=== PATIENT | female | born 1955 | race Caucasian/White ===

== ENCOUNTER → 2020-05-14 13:25 | Outpatient (CLI) | payer MEDICARE, SELFPAY ==
--- NOTE | ~2020-05-14 | MM_ITS ---
EXAMINATION: MM screening jovan BI w sera HISTORY: Screening mammogram TECHNIQUE: Craniocaudal and mediolateral oblique 3-D tomosynthesis images were obtained and synthetic 2-D images were generated. CAD analysis was submitted and interpreted. COMPARISON: 09/02/2018, 07/25/2017, 06/13/2016 bilateral digital screening mammogram examinations BREAST PARENCHYMAL COMPOSITION: The breasts are almost entirely fatty. FINDINGS: There is no evidence of suspicious mass, calcification, or architectural distortion to sugg est malignancy in either breast. There has been no suspicious interval change. IMPRESSION: 1. No mammographic evidence of malignancy. 2. Recommend routine screening mammography in one year. BI-RADS Category 1: Negative Reviewed, dictated and finalized at location A.
== END ==
PROVIDERS: PCP Family Medicine; Visit Provider Family Medicine
DX: Z12.31 Encounter for screening mammogram for malignant neoplasm of breast (principal)
CPT/HCPCS: 77063; 77067

== ENCOUNTER → 2021-09-21 12:22 | Outpatient (CLI) | payer MEDICARE, SELFPAY ==
--- NOTE | ~2021-09-21 | MM_ITS ---
EXAMINATION: MM screening jovan BI w sera HISTORY: Screening TECHNIQUE: Craniocaudal and mediolateral oblique 3-D tomosynthesis images were obtained and synthetic 2-D images were generated. CAD analysis was submitted and interpreted. COMPARISON: Comparison to multiple prior studies sequentially, with oldest reviewed study dated 06/27. BREAST PARENCHYMAL COMPOSITION: The breasts are almost entirely fatty. FINDINGS: There is no evidence of suspicious mass, calcification, or architectural distortion to sugg est malignancy in either breast. There has been no suspicious interval change. IMPRESSION: 1. No mammographic evidence of malignancy. 2. Recommend routine screening mammography in one year. BI-RADS Category 1: Negative Reviewed, dictated and finalized at location A. ND MIXER
== END ==
PROVIDERS: PCP Family Medicine; Visit Provider Family Medicine
DX: Z12.31 Encounter for screening mammogram for malignant neoplasm of breast (principal)
CPT/HCPCS: 77063; 77067

== ENCOUNTER → 2022-12-08 11:15 | Outpatient (CLI) | payer MEDICARE, SELFPAY ==
--- NOTE | ~2022-12-08 | MM_ITS ---
EXAMINATION: MM screening jovan BI w sera HISTORY: Screening mammogram TECHNIQUE: Craniocaudal and mediolateral oblique 3-D tomosynthesis images were obtained and synthetic 2-D images were generated. CAD analysis was submitted and interpreted. COMPARISON: 09/21/2021, 05/14/2020, 08/23/2018 bilateral screening mammogram examinations BREAST PARENCHYMAL COMPOSITION: The breasts are almost entirely fatty. FINDINGS: There is no evidence of suspicious mass, calcification, or architectural distortion to sugg est malignancy in either breast. There has been no suspicious interval change. IMPRESSION: 1. No mammographic evidence of malignancy. 2. Recommend routine screening mammography in one year. BI-RADS Category 1: Negative Reviewed, dictated and finalized at location A. HER TENDER
== END ==
PROVIDERS: PCP Family Medicine; Visit Provider Family Medicine
DX: Z12.31 Encounter for screening mammogram for malignant neoplasm of breast (principal)
CPT/HCPCS: 77063; 77067

== ENCOUNTER → 2022-12-21 09:07 | Outpatient (CLI) | payer MEDICARE, SELFPAY ==
--- NOTE | ~2022-12-21 | CT_ITS ---
EXAMINATION:CT chest high resolution wo sd DATE: 12/21/2022 09:23 INDICATION: Interstitial lung disease. TECHNIQUE: Computed tomography (CT) of the chest was performed without intravenous contrast. Automate d exposure control and iterative reconstruction technique were employed. The dose-length product (DLP ) was 470.93 mGy-cm. COMPARISON: Chest CT 09/17/2019 FINDINGS: The lung volumes are small. There is widespread peripheral septal thickening in the lungs w ith areas of honeycombing. There is associated mild groundglass opacities. A calcified right lung nod ule and calcified right hilar and mediastinal lymph nodes are consistent with old granulomatous disea se. No pleural effusion. There is right ventricular enlargement of the heart. There are coronary golden ry calcifications. No pericardial effusion. There is ectasia of ascending aorta measuring 4.2 cm . Ca lcifications in the liver and spleen are consistent with old granulomatous disease. There are gallsto juni in the gallbladder, which is contracted. There is a small sliding hiatal hernia. There is mild th oracic spondylosis. IMPRESSION: 1. Chronic interstitial lung disease in a pattern of usual interstitial pneumonia (UIP), stable from 09/17/2019. Reviewed, dictated and finalized at location A. MACIST IN CHARGE IMPRESSION: 1. Chronic interstitial lung disease in a pattern of usual interstitial pneumon ia (UIP), stable from 09/17/2019.
== END ==
PROVIDERS: PCP Family Medicine; Visit Provider Nurse Practitioner Family
DX: J84.9 Interstitial pulmonary disease, unspecified (principal)
CPT/HCPCS: 71250

== ENCOUNTER 2022-12-23 07:51 | Outpatient (CLI) | payer MEDICARE, SELFPAY ==
--- NOTE | 2022-12-23 13:16 | PCRCNOTE ---
PT DECLINED 6 MINUTE WALK
--- NOTE | 2022-12-23 16:51 | WPDPFTINT ---
PFT Procedure Performed PFT Procedure Performed Spirometry with Pre/Post Bronchodilator Plethysmography (Lung Vol) Diffusing Cap (DLCO) Flow Vol Loop PFT Interpretation This is a pulmonary function test with pre and post-bronchodilator spirometry, plethysmography and diffusing capacity. The test was performed and results interpreted in accordance with the 2019 and 2005 ATS/ERS Task Force guidelines respectively using the Global Lung Function Initiative-2012 reference equations. Patient demonstrated good effort and cooperation. Reproducibility criteria were met. The quality of the pre bronchodilator spirometry maneuver was Grade B and post bronchodilator spirometry maneuver was Grade A. Findings: Spirometry: The contour the inspiratory and expiratory flow tracing are normal. The pre bronchodilator FVC is 2.30 L, 79% predicted. The pre bronchodilator FEV1 is 1.95 L, 87% predicted. The pre bronchodilator FEV1: FVC ratio is 85%. The post bronchodilator FVC is 2.45 L, representing a 6% increase. The post bronchodilator FEV1 is 2.12 L, representing a 9% increase. The post bronchodilator FEV1: FVC ratio was 87%. Plethysmography: The total lung capacity is 3.56 L, 70% predicted. The functional residual capacity is 1.92 L, 66% predicted. The residual volume is 0.96 L, 44% predicted. Diffusing capacity: The diffusing capacity unadjusted for hemoglobin and carboxyhemoglobin is 12.9, 62% predicted. The diffusion capacity adjusted for alveolar volume is 4.00, 93% predicted. In comparison to previous pulmonary function test on 06/30/2016 the post bronchodilator FVC is unchanged from 2.39 L to 2.45 L. The post bronchodilator FEV1 is unchanged from 1.92 L to 2.12 L. The total lung capacity has decreased from 4.63 L to 3.56 L. Functional residual capacity has decreased from 2.47 L to 1.92 L. The residual volume has decreased from 2.05 L to 0.96 L. The diffusing capacity unadjusted for hemoglobin and carboxyhemoglobin is unchanged from 12.4 to 12.9. The diffusing capacity adjusted for alveolar volume is unchanged from 3.80 to 4.00. Impression: There is a mild restrictive ventilatory abnormality with a normal FEV1. The spirometry is normal without evidence of an obstructive abnormality. There is no significant improvement after inhaling a single dose of albuterol. The diffusing capacity unadjusted for hemoglobin and carboxyhemoglobin is mildly decreased and normalizes when adjusted for alveolar volume. In comparison to previous pulmonary function test on 06/30/2016 there has been a greater than anticipated time dependent decrease in total lung capacity, functional residual capacity and residual volume with no significant change in the FVC, FEV1 or diffusing capacity. clinical correlation recommended
== END 2022-12-23 07:52 | disposition home or self-care (01) ==
LOC: ANHPFT 07:52
PROVIDERS: PCP Family Medicine; Visit Provider Nurse Practitioner Family
DX: R06.09 Other forms of dyspnea (principal); J84.9 Interstitial pulmonary disease, unspecified; R94.2 Abnormal results of pulmonary function studies
CPT/HCPCS: 94060; 94726; 94729

== ENCOUNTER 2023-03-01 10:32 | Outpatient (CLI) | payer MEDICARE, SELFPAY ==
--- NOTE | ~2023-03-01 | XR_ITS ---
EXAMINATION: XR toe 1st LT min 2V DATE: 03/01/2023 10:53 INDICATION: Left great toe local infection of the skin and subcutaneous tissue. TECHNIQUE: 4 views of left great toe were obtained. COMPARISON: None. FINDINGS: Bone alignment is normal. No fracture. There is mild osteoarthritis of first metatarsophala ngeal joint and first interphalangeal joint. IMPRESSION: 1. No evidence of osteomyelitis. 2. Mild polyarticular osteoarthritis. Reviewed, dictated and finalized at location A.
== END 2023-03-01 10:33 | disposition home or self-care (01) ==
LOC: ANHIMG 10:37
PROVIDERS: PCP Family Medicine; Visit Provider Nurse Practitioner Gerontology
DX: L08.9 Local infection of the skin and subcutaneous tissue, unspecified (principal); M19.072 Primary osteoarthritis, left ankle and foot
CPT/HCPCS: 73660

== ENCOUNTER → 2023-04-06 12:02 | Outpatient (CLI) | payer MEDICARE, SELFPAY ==
--- NOTE | ~2023-04-06 | DEXA_ITS ---
Bone Density Report Name: MATTHEW FUENTES Age: 67 Sex: Female Ethnicity: White Date of : 1955 Indication: postmenopausal; screening for osteoporosis; parental hip fracture; prior fracture; Referring Provider: DEVEN BALLESTEROS Study: Bone densitometry was performed. Exam Date: April 06, 2023 Accession number: [id number] Bone Density: Region BMD T-score Z-score Classification AP Spine (L1, L2, L3) 1.015 0.0 2.0 Normal Femoral Neck (Left) 0.734 -1.0 0.7 Normal Total Hip (Left) 0.920 -0.2 1.3 Normal Femoral Neck (Right) 0.784 -0.6 1.2 Normal Total Hip (Right) 0.918 -0.2 1.3 Normal Total Hip Mean 0.919 -0.2 1.3 Normal World Health Organization criteria for BMD impression classify patients as: Normal (T-score at or above -1.0), Osteopenia (T-score between -1.0 and -2.5), or Osteoporosis (T-score at or below -2.5). 10-year Fracture Risk: FRAX not reported because: All T-scores for Spine Total, Hip Total, Femoral Neck at or above -1.0 Clinical Information Provided by Patient: Has had a low trauma fracture Parent has had a hip fracture Has used the following medications: Vitamin D, Calcium Patient maximum height was 64.1 Menopause Age: 43 No regular weight bearing exercise Does not regularly consume dairy products Drinks caffeinated beverages Onset of menses at age 12 Number of children 0 Impression: The patient has normal bone mass. The patient has risk factors, including: parental hip fracture, previous fracture. Discussion: BONE DENSITY IS ABOVE THE MINIMUM DESIRABLE LEVEL AT ALL SKELETAL SITES TESTED. This patient?s bone mineral density is above the minimum desirable level (T-score -1.0 or better) at all sites measured. The patient should follow a healthful lifestyle (good nutrition with adequate calcium and vitamin D, and appropriate weight-bearing exercise). Follow-Up: Consider repeating this study in 5 years or sooner if there is some new clinical indication. Reported by: ALLY on 04/06/2023 12:27:00 PM. Reviewed, dictated and finalized at location AKristine IBARRA
== END ==
PROVIDERS: PCP Family Medicine; Visit Provider Nurse Practitioner Gerontology
DX: Z78.0 Asymptomatic menopausal state (principal)
CPT/HCPCS: 77080

== ENCOUNTER 2023-08-08 09:37 | Outpatient (CLI) | payer MEDICARE, SELFPAY ==
--- NOTE | 2023-08-08 10:13 | ECHO_ITS ---
Patient Info Name: Zandra Brown Age: 67 years : 1955 Gender: Female Ht: 64 in Wt: 220 lbs BSA: 2.17 m2 HR: 64 bpm BP: 132 / 90 mmHg Technical Quality: Fair Exam Date: 08/08/2023 10:24 AM Exam Location: [facility] Pulmonary Patient Status: Outpatient Admit Date: 08/08/2023 Staff Ordering Physician: Jax Moreau APRN Operations Recruiter: Jacinta Gary RDCS Attending Provider: Jax Moreau APRN Referring Physician: Prieto ANTHONY; Exam Type: CA echo doppler color flow Study Info Indications R06.09 - Other forms of dyspnea Complete two-dimensional, color flow and Doppler transthoracic echocardiogram is performed. Summary 1. Complete two-dimensional, color flow and Doppler transthoracic echocardiogram is performed. 2. Left ventricular chamber dimension is normal. 3. Left ventricular systolic function is normal, estimated at 60-65%. 4. The left ventricular diastolic function is grade I diastolic dysfunction. 5. E/e' 7 is not elevated. 6. Left atrial chamber dimension is mildly enlarged. 7. There is mild mitral valve regurgitation. 8. There is trace tricuspid valve regurgitation. 9. No pulmonary hypertension, estimated pulmonary arterial systolic pressure is 25 mmHg. 10. There is mild pulmonic regurgitation. Left Ventricle E/e' 7 is not elevated. Left ventricular chamber dimension is normal. Left ventricular systolic function is normal, estimated at 60-65%. The left ventricular diastolic function is grade I diastolic dysfunction. Right Ventricle Right ventricular chamber dimension is normal. Right ventricular systolic function is normal. Left Atria Left atrial chamber dimension is mildly enlarged. Right Atria Right atrial chamber dimension is normal. Aortic Valve The aortic valve is trileaflet. There is no aortic valve stenosis. There is no aortic valve regurgitation. Pulmonic Valve There is mild pulmonic regurgitation. Mitral Valve There is no mitral valve stenosis. There is mild mitral valve regurgitation. Tricuspid Valve There is trace tricuspid valve regurgitation. No pulmonary hypertension, estimated pulmonary arterial systolic pressure is 25 mmHg. Pericardium/Pleural There is no pericardial effusion. Inferior Vena Cava Normal inferior vena cava with >50% collapse upon inspiration consistent with normal right atrial pressure, 5 mmHg. Aorta The aortic root size at the sinus of Valsalva is normal. Left Ventricular Outflow Tract Name Value Normal LVOT 2D LVOT Diameter 2.0 cm LVOT Doppler LVOT Peak Gradient 5 mmHg LVOT Mean Gradient 2 mmHg LVOT VTI 22 cm LVOT VTI/AV VTI Ratio 0.8 LVOT Stroke Volume 68 ml LVOT CO 3.8 l/min LVOT CI 1.7 l/min/m2 Pulmonic Valve Name Value Normal RVOT Doppler RVOT Peak Gradient
== END 2023-08-08 09:38 | disposition home or self-care (01) ==
LOC: ANHCARD 09:37
PROVIDERS: PCP Family Medicine; Visit Provider Nurse Practitioner Family
DX: R06.09 Other forms of dyspnea (principal); J84.9 Interstitial pulmonary disease, unspecified; I34.0 Nonrheumatic mitral (valve) insufficiency; I07.1 Rheumatic tricuspid insufficiency; R93.1 Abnormal findings on diagnostic imaging of heart and coronary circulation
CPT/HCPCS: 93306

== ENCOUNTER 2023-12-18 07:58 | Outpatient (CLI) | payer MEDICARE, SELFPAY ==
[2023-12-18 08:00] VITALS: PULSE 67; O2SAT 93
[2023-12-18 08:05] VITALS: PULSE 91; O2SAT 83
[2023-12-18 08:10] VITALS: PULSE 81; O2SAT 86
[2023-12-18 08:15] VITALS: PULSE 86; O2SAT 87
[2023-12-18 08:20] VITALS: PULSE 85; O2SAT 92
[2023-12-18 08:35] VITALS: PULSE 69; O2SAT 93
--- NOTE | 2023-12-18 09:17 | HOMEO2EVAL ---
Evaluation was performed at [facility] Home Oxygen Evaluation RC: Home Oxygen (O2) Evaluation Start: 12/18/23 09:13 Freq: Status: Active Protocol: RPE Activity Type Activity Date Activity User E-sign Co-sign Detail Recorded Client Recorded Date Recorded By Document 12/18/23 08:00 [email or web address] [email or web address] 12/18/23 09:17 PKH Document 12/18/23 08:05 [email or web address] 12/18/23 09:17 PKH Document 12/18/23 08:10 [email or web address] [email or web address] 12/18/23 09:17 PKH Document 12/18/23 08:15 [email or web address] [email or web address] 12/18/23 09:17 PKH Document 12/18/23 08:20 [email or web address] [email or web address] 12/18/23 09:17 PKH Document 12/18/23 08:35 [email or web address] [email or web address] 12/18/23 09:17 PKH 12/18/23 12/18/23 12/18/23 08:00 08:05 08:10 Home O2 Evaluation [Oxygen] -Test Phase Resting Exercise Exercise -Oxygen Delivery Room Air Room Air Nasal Cannula -Oxygen Flow Rate (L/min) 1 [Pulse Oximetry] -Pulse Oximetry (90-100 %) 93 83 L 86 L [Pulse Rate] -Pulse Rate (60-100 beats/min) 67 91 81 [Charges] -Evaluation Charges O2 Evaluation by Pulmonary 12/18/23 12/18/23 12/18/23 08:15 08:20 08:35 Home O2 Evaluation [Oxygen] -Test Phase Exercise Exercise Resting -Oxygen Delivery Nasal Cannula Nasal Cannula Room Air -Oxygen Flow Rate (L/min) 2 3 [Pulse Oximetry] -Pulse Oximetry (90-100 %) 87 L 92 93 [Pulse Rate] -Pulse Rate (60-100 beats/min) 86 85 69 [Charges] -Evaluation Charges
--- NOTE | 2023-12-20 17:31 | WPDPFTINT ---
PFT Procedure Performed PFT Procedure Performed Spirometry with Pre/Post Bronchodilator Plethysmography (Lung Vol) Diffusing Cap (DLCO) Flow Vol Loop PFT Interpretation This is a pulmonary function test with pre and post-bronchodilator spirometry, plethysmography and diffusing capacity. The test was performed and results interpreted in accordance with the 2019 and 2005 ATS/ERS Task Force guidelines respectively using the Global Lung Function Initiative-2012 reference equations. Patient demonstrated good effort and cooperation. Reproducibility criteria were met. The quality of the pre bronchodilator spirometry maneuver was Grade A and post bronchodilator spirometry maneuver was Grade A. Of note, the patient was only able to perform 1 DLCO maneuver due to persistent cough. Findings: Spirometry: The contour the inspiratory and expiratory flow tracing are normal. The pre bronchodilator FVC is 1.76 L, 61% predicted. The pre bronchodilator FEV1 is 1.32 L, 59% predicted. The pre bronchodilator FEV1: FVC ratio 75%. The post bronchodilator FVC is 1.8 L, representing a 7% increase. The post bronchodilator FEV1 is 1.46 L, representing an 11% increase. The post bronchodilator FEV1: FVC ratio 78%. Plethysmography: The total lung capacity is 2.71 L, 53% predicted. The functional residual capacity is 1.16 L, 40% predicted. The residual volume is 0.94 L, 43% predicted. Diffusing capacity: The diffusing capacity unadjusted for hemoglobin and carboxyhemoglobin is 10.4, 51% predicted. Diffusing capacity adjusted for alveolar volume is 4.12, 96% predicted. In comparison to previous pulmonary function testing on 12/23/2022 the post bronchodilator FVC has decreased from 2.45 L to 1.88 L. The post bronchodilator FEV1 is decreased from 2.12 L to 1.46 L. The total lung capacity is decreased from 3.56 L to 2.71 L. The functional residual capacity is decreased from 1.92 L to 1.16 L. The residual volume is unchanged from 0.96 L to 0.94 L. The diffusing capacity unadjusted for hemoglobin and carboxyhemoglobin is decreased from 12.9 to 10.4. The diffusing capacity adjusted for alveolar volume is unchanged from 4.00 to 4.12. Impression: There is a moderate restrictive ventilatory abnormality. The spirometry is normal without evidence of an obstructive abnormality. There is no significant improvement after inhaling a single dose of albuterol. The diffusing capacity was only performed once due to patient's coughing and using this data the DLCO unadjusted for hemoglobin and carboxyhemoglobin is moderately decreased and normalizes when adjusted for alveolar volume. In comparison to previous pulmonary function testing on 12/23 2022 there has been a greater than anticipated time dependent decrease in the FVC, FEV1, total lung capacity, functional residual capacity and DLCO unadjusted for hemoglobin and carboxyhemoglobin with no significant change in the residual volume and diffusing capacity adjusted for alveolar volume. Clinical correlation is recommended.
== END 2023-12-18 07:59 | disposition home or self-care (01) ==
LOC: ANHPFT 07:59
PROVIDERS: PCP Family Medicine; Visit Provider Nurse Practitioner Family
DX: J84.9 Interstitial pulmonary disease, unspecified (principal)
CPT/HCPCS: 94060; 94618; 94726; 94729

== ENCOUNTER 2023-12-18 12:47 | Outpatient (CLI) | payer MEDICARE, SELFPAY ==
--- NOTE | ~2023-12-18 | CT_ITS ---
EXAMINATION:CT diagnostic chest wo con DATE: 12/18/2023 13:04 INDICATION: Interstitial pulmonary disease, unspecified. TECHNIQUE: Computed tomography (CT) of the chest was performed without intravenous contrast. Automate d exposure control and iterative reconstruction technique were employed. The dose-length product (DLP ) was 403.76 mGy-cm. COMPARISON: Chest CT 12/21/2022 FINDINGS: The lung volumes are small. There is widespread septal thickening in the lungs associated w ith groundglass opacities with a peripheral predominance. A calcified right lung nodule and calcified right hilar and mediastinal lymph nodes are consistent with old granulomatous disease. There are are as of honeycombing bilaterally. There is mild bronchiectasis in right middle lobe. No pleural effusio n. The heart size is normal. There are coronary artery calcifications. No pericardial effusion. There is stable ectasia of ascending aorta measuring 4.2 cm. Calcifications in the liver and spleen are co nsistent with old granulomatous disease. There are gallstones in the gallbladder, which is normal in size. There are bridging endplate osteophytes at multiple levels in the spine, consistent with diffus e idiopathic skeletal hyperostosis (DISH). There is severe cervical spondylosis and moderate thoracic spondylosis. IMPRESSION: 1. Chronic interstitial lung disease in a pattern of usual interstitial pneumonia (UIP) stable from . Reviewed, dictated and finalized at location E. ICATION DEPARTMENT SUPERVISOR IMPRESSION: 1. Chronic interstitial lung disease in a pattern of usual interstitial pneumon ia (UIP) stable from 12/21/2022.
== END 2023-12-18 12:48 ==
PROVIDERS: PCP Nurse Practitioner Family; Visit Provider Nurse Practitioner Family
DX: J84.9 Interstitial pulmonary disease, unspecified (principal); Z87.891 Personal history of nicotine dependence
CPT/HCPCS: 71250

== ENCOUNTER 2024-02-14 09:10 | Outpatient (CLI) | payer MEDICARE, SELFPAY ==
[2024-02-14 10:01] VITALS: PULSE 82; O2SAT 91
[2024-02-14 10:03] VITALS: PULSE 96; O2SAT 85
[2024-02-14 10:04] VITALS: PULSE 92; O2SAT 86
[2024-02-14 10:05] VITALS: PULSE 92; O2SAT 89
[2024-02-14 10:07] VITALS: PULSE 93; O2SAT 90
--- NOTE | 2024-02-14 10:17 | HOMEO2EVAL ---
Evaluation was performed at [facility] Home Oxygen Evaluation RC: Home Oxygen (O2) Evaluation Start: 02/14/24 10:15 Freq: Status: Active Protocol: RPE Activity Type Activity Date Activity User E-sign Co-sign Detail Recorded Client Recorded Date Recorded By Document 02/14/24 10:01 [email or web address] [email or web address] 02/14/24 10:17 KRM Document 02/14/24 10:03 KRM [email or web address] 02/14/24 10:17 KRM Document 02/14/24 10:04 [email or web address] [email or web address] 02/14/24 10:17 KRM Document 02/14/24 10:05 [email or web address] [email or web address] 02/14/24 10:17 KRM Document 02/14/24 10:07 [email or web address] [email or web address] 02/14/24 10:17 KRM 02/14/24 02/14/24 02/14/24 10:01 10:03 10:04 Home O2 Evaluation [Oxygen] -Test Phase Resting Exercise Exercise -Oxygen Delivery Room Air Room Air Nasal Cannula -Oxygen Flow Rate (L/min) 1 [Pulse Oximetry] -Pulse Oximetry (90-100 %) 91 85 L 86 L [Pulse Rate] -Pulse Rate (60-100 beats/min) 82 96 92 [Evaluation] -Activity Tolerance Good Good [Exercise] -Ambulation Distance (feet) -Ambulation Distance (meters) [Comments] -Home Oxygen Evaluation Comments [Charges] -Evaluation Charges 02/14/24 02/14/24 10:05 10:07 Home O2 Evaluation [Oxygen] -Test Phase Exercise Exercise -Oxygen Delivery Nasal Cannula Nasal Cannula -Oxygen Flow Rate (L/min) 2 3 [Pulse Oximetry] -Pulse Oximetry (90-100 %) 89 L 90 [Pulse Rate] -Pulse Rate (60-100 beats/min) 92 93 [Evaluation] -Activity Tolerance Good Good [Exercise] -Ambulation Distance (feet) 400 -Ambulation Distance (meters) 121.91 [Comments] -Home Oxygen Evaluation Comments pt. requires 3lpm o2 with activity. pt. request POC when being set up with DME. [Charges] -Evaluation Charges O2 Evaluation by Pulmonary
--- NOTE | 2024-02-14 14:52 | WPDPFTINT ---
PFT Procedure Performed PFT Procedure Performed Spirometry with Pre/Post Bronchodilator Plethysmography (Lung Vol) Diffusing Cap (DLCO) Flow Vol Loop PFT Interpretation Lung volumes were measured with the body plethysmography method. The diminished [id number] lung volumes are indicative of a restrictive respiratory disease. Spirometry showed diminished expiratory flow rate and a normal FEV1 to FVC ratio of 82%, also consistent with restrictive respiratory disease. Lung diffusion capacity is diminished at 48% predicted. Following administration of a bronchodilator there was no significant increase in the expiratory flow rates. The reduced capacity for lung diffusion, coupled with decreased alveolar volume and a standard DLCO/VA ratio, could suggest a loss of alveolar capillary structure, a condition often seen in interstitial lung disease. Clinical correlation advised. In comparison to previous study done in December of 2023 there has been no significant change in spirometric indices, lung diffusion capacity or total lung capacity. Impression: Moderately severe restrictive respiratory disease. Moderately reduced lung diffusion capacity. Essentially unchanged since previous study.
== END 2024-02-14 09:11 | disposition home or self-care (01) ==
PROVIDERS: PCP Family Medicine; Visit Provider Nurse Practitioner Family
DX: R06.09 Other forms of dyspnea (principal); J84.9 Interstitial pulmonary disease, unspecified; R94.2 Abnormal results of pulmonary function studies
CPT/HCPCS: 94060; 94618; 94726; 94729

== ENCOUNTER 2024-07-08 12:42 | Outpatient (CLI) | payer MEDICARE, SELFPAY ==
--- NOTE | ~2024-07-08 | MM_ITS ---
EXAMINATION: MM screening jovan BI w sera HISTORY: Screening TECHNIQUE: Craniocaudal and mediolateral oblique 3-D tomosynthesis images were obtained and synthetic 2-D images were generated. CAD analysis was submitted and interpreted. COMPARISON: Comparison to multiple prior studies sequentially, with oldest reviewed study dated 06/13. BREAST PARENCHYMAL COMPOSITION: Not Dense: The breasts are almost entirely fatty. FINDINGS: There is no evidence of suspicious mass, calcification, or architectural distortion to sugg est malignancy in either breast. There has been no suspicious interval change. IMPRESSION: 1. No mammographic evidence of malignancy. 2. Recommend routine screening mammography in one year. BI-RADS Category 1: Negative Reviewed, dictated and finalized at location B.
== END 2024-07-08 12:43 | disposition home or self-care (01) ==
LOC: MICIMG 12:42
PROVIDERS: PCP Family Medicine; Visit Provider Family Medicine
DX: Z12.31 Encounter for screening mammogram for malignant neoplasm of breast (principal)
CPT/HCPCS: 77063; 77067

== ENCOUNTER 2024-10-18 13:30 | Outpatient (RCR) | payer MEDICARE, SELFPAY | END 2024-12-16 07:05 | disposition home or self-care (01) | LOC: ANHCPREHAB 13:30 | PROVIDERS: PCP Family Medicine; Visit Provider Internal Medicine Pulmonary Disease | DX: J84.9 Interstitial pulmonary disease, unspecified (principal) | CPT/HCPCS: 94625; G0239 ==

== ENCOUNTER 2025-07-11 10:22 | Outpatient (CLI) | payer MEDICARE, SELFPAY ==
--- NOTE | ~2025-07-11 | MM_ITS ---
EXAMINATION: MM screening jovan BI w sera HISTORY: Screening TECHNIQUE: Craniocaudal and mediolateral oblique 3-D tomosynthesis images were obtained and synthetic 2-D images were generated. CAD analysis was submitted and interpreted. COMPARISON: Comparison to multiple prior studies sequentially, with oldest reviewed study dated , 08/23/2018 BREAST PARENCHYMAL COMPOSITION: The breasts are almost entirely fatty. FINDINGS: There is no evidence of suspicious mass, calcification, or architectural distortion to suggest malignancy in either breast. IMPRESSION: 1. No mammographic evidence of malignancy. 2. Recommend routine screening mammography in one year. BI-RADS Category 1: Negative Reviewed, dictated and finalized at location B.
== END 2025-07-11 10:23 | disposition home or self-care (01) ==
LOC: MICIMG 10:23
PROVIDERS: PCP Family Medicine; Visit Provider Family Medicine
DX: Z12.31 Encounter for screening mammogram for malignant neoplasm of breast (principal)
CPT/HCPCS: 77063; 77067